=== PATIENT | female | born 1990 | race Caucasian/White ===

== ENCOUNTER → 2019-02-16 09:08 | Outpatient (BNVA) | payer BC, SELFPAY | PROVIDERS: Family Provider Family Medicine; PCP Family Medicine; Referring Provider Obstetrics & Gynecology; Visit Provider Obstetrics & Gynecology | DX: Z32.01 Encounter for pregnancy test, result positive (principal) | CPT/HCPCS: 81025 ==

== ENCOUNTER 2019-02-20 17:44 | Emergency (ER) | payer BC, SELFPAY ==
[2019-02-20 18:23] VITALS: BP 115/72; PULSE 98; RESP 20; TEMP 37.6; O2SAT 98; BMI 37.2
--- NOTE | 2019-02-20 18:59 | ED_ITS ---
HPI - Dental/Oral General: Chief complaint: Dental/Oral Stated complaint: dental pain/facial swelling Time Seen by Provider: 02/20/19 18:38 History of Present Illness: HPI Narrative: Patient is a 28-year-old female that is 6 weeks comes into the ED with facial swelling. This started yesterday and patient went to see urgent care and they put her on a prescription for Augmentin. Patient says that she's had this kind of swelling in her lower left jaw in the past because of wisdom teeth causing gum flap where food gets caught up underneath. She has taken 2 doses of antibiotic and it has not gotten any better so she came into the ED for evaluation.She says the swelling has increased. Patient denies any airway obstruction or shortness of breath, chest pain, abdominal pain, nausea, vomiting, upper respiratory symptoms, diarrhea, constipation, blood in the stool, dysuria, hematuria, vision changes. Review of Systems General: Reports: 10 or more systems reviewed and unremarkable except in HPI and below PFSH ED PFSH: Statuses (acute, chronic, etc) shown below reflect problem list status as previously entered and may not be historically accurate Social History Smoking and tobacco status: never smoked Alcohol intake: never Physical Exam Const: COMMON NORMALS: oriented x3 HENMT: COMMON NORMALS: normocephalic and external ears normal HEAD & SCALP: normocephalic FACE & SINUS: facial tenderness (mandible) on the left and other (Facial swelling on left mandible region) EXTERNAL EAR: Yes external ears normal MOUTH: oral and palatal mucosa normal TEETH & GINGIVA: Yes gingiva abnormal (Back ) edematous and tender THROAT: posterior oropharynx normal and uvula midline Neck/C-Spine: COMMON NORMALS: supple GENERAL: Yes normal visual inspection Resp: COMMON NORMALS: normal respiratory effort, no retractions, no use of accessory muscles and clear to auscultation bilaterally AUSCULTATION: clear to auscultation bilaterally Cardio: COMMON NORMALS: regular rate, regular rhythm, S1 normal heart sound, S2 normal heart sound, no gallops, no clicks, no murmurs and peripheral pulses 2+ throughout RATE: regular rate RHYTHM: regular rhythm HEART SOUNDS: S1 normal and S2 normal PERIPHERAL PULSES: pulses 2+ throughout GI: COMMON NORMALS: normal to inspection, nondistended, normoactive bowel sounds, soft to palpation, non-tender and no masses PALPATION: Yes soft : COMMON NORMALS: Yes no CVA tenderness BLADDER/KIDNEY EXAM: Yes no CVA tenderness Back/Pelvis: COMMON NORMALS: no CVA tenderness Extremity: COMMON NORMALS: normal to inspection Neuro: COMMON NORMALS: oriented x3 Skin: COMMON NORMALS: no rashes or lesions noted GENERAL SKIN EXAM: no rashes or lesions noted Course ED course: Patient is [address] of the face is contraindicated due to possible injury to the fetus. I explained to the patient and she decided not to do a CT scan. Vital Signs: Vital signs: Vital Signs Temperature 98.7 F 02/20/19 20:07 Pulse Rate 72 02/20/19 20:07 Respiratory Rate 16 02/20/19 20:07 Blood Pressure 131/62 02/20/19 20:07 Pulse Oximetry 98 02/20/19 20:07 MDM - Dental/Oral Lab Data: Attestation: I reviewed the patient's lab results. Labs: Lab Results 02/20/19 02/20/19 02/20/19 Range/Units 19:00 19:18 19:18 WBC 11.7 H (4.0-10.0) 10^3/ uL RBC 4.47 (4.1-5.3) 10^6/u L Hgb 12.5 (11.5-15.3) g/dL Hct 40.5 (37.0-47.0) % MCV 90.6 (81-99) fL MCH 28.0 (28.0-34.0) pg MCHC 30.9 (30.0-36.0) g/dL RDW 13.0 (12.1-15.1) % Plt Count 205 (130-400) 10^3/c mm MPV 11.3 H (7.4-10.4) fL Neut % (Auto) 60.9 % Lymph % (Auto) 28.0 % Morehouse % (Auto) 7.2 % Eos % (Auto) 3.4 % Baso % (Auto) 0.2 % Neut # (Auto) 7.2 (1.8-7.7) 10^3/u L Lymph # (Auto) 3.3 (0.8-4.8) 10^3/u L Morehouse # (Auto) 0.8 (0.2-0.9) 10^3/u L Eos # (Auto) 0.4 (0.0-0.8) 10^3/u L Baso # (Auto) 0.0 (0.0-0.1) 10^3/u L Nucleated RBC % (a uto) 0 % Nucleated RBCs # 0.0 /100WBC Sodium 137 (136-145) mmol/L Potassium 3.8 (3.5-5.1) mmol/L Chloride 101 (98-107) mmol/L Carbon Dioxide 23 (22-29) mmol/L Anion Gap 16.8 (5-19) BUN 8 (6-20) mg/dL Creatinine 0.5 (0.5-0.9) mg/dL GFR Calculation 144.9 H (90-130) mL/min Glucose 90 (74-109) mg/dL Calcium 10.3 H (8.6-10.0) mg/Dl Total Bilirubin 0.3 (0.15-1.2) mg/dL AST 15 (0-32) U/L ALT 15 (0-33) U/L Alkaline Phosphata se 62 (35-105) IU/L Total Protein 8.0 (6.6-8.7) g/dL Albumin 4.3 (3.5-5.2) g/dL Globulin 3.7 (1.3-4.6) g/dL Urine Color Straw (Yellow) Urine Appearance Hazy A (CLEAR) Urine pH 7 (5-7) Ur Specific Gravit y 1.015 (1.005-1.030) Urine Protein Neg (Negative) Urine Glucose (UA) Norm (Normal) Urine Ketones Negative (Negative) Urine Occult Blood 3+ H (Negative) Urine Nitrate Negative (Negative) Urine Bilirubin 1+ H (NEGATIVE) Urine Urobilinogen 4 H (Negative) mg/dL Ur Leukocyte Sakshi ase Negative (Negative) Urine RBC 0-4 H (0-2) /hpf Urine WBC Rare (0-5) /hpf Ur Squamous Epith Cells 0-4 H (0-5) Urine Bacteria 2+ H (NONE) Urine Mucus 2+ Discharge Plan Discharge Patient Disposition: Home, Self-Care Clinical Impression: Dental abscess Condition: Stable Prescriptions: No Action prenat.vits,polly,[id number] Tablet 1 tab PO ONCE RF: 0 amoxicillin-pot clavulanate [Augmentin] 875-125 mg tablet 1 tab PO BID 10 Days Qty: 20 RF: 0 Discharge Orders: Discharge Order (Routine); Ordered 02/20/19 Ordered By: Hasmukh Whyte Referrals: Gin Jones MD [Primary Care Provider] - Discharge Diet: Regular Discharge Activity: Resume usual activity Activity Restrictions/Additional Instructions: Continue taking previously prescribed Augmentin for dental abscess. Monitor facial swelling and if it continues to get worse by Friday return to the ED. Also if swelling starts affecting the throat or breathing return to the ED immediately. Use warm moist compresses on facial swelling area to help reduce swelling. Follow-up with primary care doctor in 5-7 days for reevaluation. Also contact dentist to try to set up an appointment for evaluation of dental abscess. Take Tylenol for pain and fever control. Drink plenty of fluids. Discharge Date/Time: 02/20/19 20:00 Coding Level of Care Code ED [employer] for [employer]
[2019-02-20] MEDS: iohexol 300 mg/mL 100 mL Btl IV (19:02)
[2019-02-20 19:24] LABS: Glucose Urine UA Norm (Normal); Ketones Urine Negative (Negative); Protein Urine Neg (Negative); Specific Gravity, Urine 1.015 (1.005-1.030); Urine Appearance Hazy (CLEAR); Urine Color Straw (Yellow); pH Urine 7 (5-7)
[2019-02-20 19:24] LABS: Basophils % 0.2 %; Eosinophils # 0.4 10^3/uL (0.0-0.8); Eosinophils % 3.4 %; Hematocrit 40.5 % (37.0-47.0); Hemoglobin 12.5 g/dL (11.5-15.3); Lymphocytes # 3.3 10^3/uL (0.8-4.8); Mean Corpuscular HGB Conc 30.9 g/dL (30.0-36.0); Mean Corpuscular Volume 90.6 fL (81-99); Mean Platelet Volume 11.3 fL (7.4-10.4); Monocytes # 0.8 10^3/uL (0.2-0.9); Monocytes % 7.2 %; Neutrophils # 7.2 10^3/uL (1.8-7.7); Neutrophils % 60.9 %; Nucleated Red Blood Cells % 0 %; Platelet Count 205 10^3/cmm (130-400); Red Blood Count 4.47 10^6/uL (4.1-5.3); White Blood Count 11.7 10^3/uL (4.0-10.0)
[2019-02-20 19:25] LABS: Add Urine Microscopic? YES; Bilirubin Urine 1+ (NEGATIVE); Blood Urine 3+ (Negative); Leukocyte Esterase Urine Negative (Negative); Nitrate Urine Negative (Negative); Urobilinogen Urine 4 mg/dL (Negative)
--- NOTE | 2019-02-20 19:29 | PC.NURSE ---
Jaw pain and swelling on left side of face extending to left neck. Worsening over last 2 days, started antibiotics yesterday
[2019-02-20 19:32] LABS: Add Urine Culture? Yes; Bacteria Urine 2+; Mucus Urine 2+; RBC Urine 0-4 /hpf (0-2); Squamous Epithelial Cell Urine 0-4 (0-5); WBC Urine RARE /hpf (0-5)
[2019-02-20 19:41] LABS: Alanine Aminotransferase 15 U/L (0-33); Albumin Level 4.3 g/dL (3.5-5.2); Alkaline Phosphatase 62 IU/L (35-105); Anion Gap 16.8 (5-19); Aspartate Amino Transferase 15 U/L (0-32); Blood Urea Nitrogen 8 mg/dL (6-20); Calcium 10.3 mg/Dl (8.6-10.0); Carbon Dioxide 23 mmol/L (22-29); Chloride 101 mmol/L (98-107); Globulin 3.7 g/dL (1.3-4.6); Glomerular Filtration Rate 144.9 mL/min (90-130); Glucose 90 mg/dL (74-109); Potassium 3.8 mmol/L (3.5-5.1); Sodium 137 mmol/L (136-145); Total Bilirubin 0.3 mg/dL (0.15-1.2)
[2019-02-20 20:07] VITALS: BP 131/62; PULSE 72; RESP 16; TEMP 37.1; O2SAT 98
== END 2019-02-20 20:00 | disposition home or self-care (01) ==
PROVIDERS: Emergency Provider Physician Assistant; Family Provider Family Medicine; PCP Family Medicine
DX: K04.7 Periapical abscess without sinus (principal)
CPT/HCPCS: 80053; 81003; 85025; 87086; 99282; Q9967

== ENCOUNTER → 2019-03-05 14:15 | Outpatient (BNVA) | payer BC, SELFPAY | PROVIDERS: Family Provider Family Medicine; PCP Family Medicine; Visit Provider Nurse Practitioner Women's Health | DX: Z01.89 Encounter for other specified special examinations (principal) | CPT/HCPCS: 84315 ==

== ENCOUNTER → 2019-03-11 08:10 | Outpatient (BNVA) | payer BC, SELFPAY | PROVIDERS: Family Provider Family Medicine; PCP Family Medicine; Visit Provider Obstetrics & Gynecology | DX: O09.891 Supervision of other high risk pregnancies, first trimester (principal); Z3A.08 8 weeks gestation of pregnancy | CPT/HCPCS: 76817 ==

== ENCOUNTER → 2019-03-26 10:52 | Outpatient (BNVA) | payer BC, SELFPAY | PROVIDERS: Family Provider Family Medicine; PCP Family Medicine; Visit Provider Obstetrics & Gynecology Female Pelvic Medicine and Reconstructive Surgery | DX: O09.891 Supervision of other high risk pregnancies, first trimester (principal); O20.9 Hemorrhage in early pregnancy, unspecified; O99.210 Obesity complicating pregnancy, unspecified trimester; O21.9 Vomiting of pregnancy, unspecified; O34.219 Maternal care for unspecified type scar from previous cesarean delivery; Z3A.11 11 weeks gestation of pregnancy | CPT/HCPCS: 80307; 82950; 84315; 85027; 86592; 86762; 86803; 86850; 86900; 87086; 87340; 87491; 87591; 87806 ==

== ENCOUNTER 2019-04-07 19:17 | Emergency (ER) | payer BC, SELFPAY ==
[2019-04-07 19:26] VITALS: BP 142/101; PULSE 120; RESP 20; TEMP 36.8; O2SAT 96; BMI 37.8
== END 2019-04-07 23:48 | disposition left against medical advice (07) ==
LOC: ER 20:56
PROVIDERS: Family Provider Family Medicine; PCP Family Medicine
DX: O99.89 Other specified diseases and conditions complicating pregnancy, childbirth and the puerperium (principal); R10.10 Upper abdominal pain, unspecified; R10.30 Lower abdominal pain, unspecified; R11.2 Nausea with vomiting, unspecified; Z3A.13 13 weeks gestation of pregnancy; Z53.21 Procedure and treatment not carried out due to patient leaving prior to being seen by health care provider
CPT/HCPCS: 99281

== ENCOUNTER 2019-04-08 15:22 | Outpatient (CLI) | payer BC, SELFPAY ==
--- NOTE | 2019-04-08 | US_ITS ---
WS: [id number] RIGHT UPPER QUADRANT ULTRASOUND HISTORY: RUQ PAIN COMPARISON: 11/10/2017 Liver: 14.4 cm in length. Normal size and echogenicity with no intrahepatic dilatation. No mass. Gallbladder: Normally distended gallbladder with no stones or wall thickening. CBD: 4.8 cm Pancreas: Pancreas is slightly prominent but similar to the prior examination. No peripancreatic flui d. The size of the pancreas is probably related to the young age of the patient. Right kidney: 12.3 cm in length. Normal echogenicity with no mass or hydronephrosis. Aorta and IVC: Unremarkable. No ascites. US/US gall bladder [id number] IMPRESSION: Normal RIGHT upper quadrant ultrasound.
[2019-04-08 16:10] LABS: Basophils % 0.2 %; Eosinophils # 0.3 10^3/uL (0.0-0.8); Eosinophils % 3.3 %; Hematocrit 38.7 % (37.0-47.0); Hemoglobin 12.1 g/dL (11.5-15.3); Lymphocytes # 2.3 10^3/uL (0.8-4.8); Lymphocytes % 22.5 %; Mean Corpuscular HGB Conc 31.3 g/dL (30.0-36.0); Mean Corpuscular Hemoglobin 28.6 pg (28.0-34.0); Mean Corpuscular Volume 91.5 fL (81-99); Mean Platelet Volume 11.6 fL (7.4-10.4); Monocytes # 0.6 10^3/uL (0.2-0.9); Monocytes % 6.4 %; Neutrophils # 6.8 10^3/uL (1.8-7.7); Neutrophils % 67.4 %; Nucleated Red Blood Cells % 0 %; Platelet Count 141 10^3/cmm (130-400); Red Blood Count 4.23 10^6/uL (4.1-5.3); Red Cell Distribution Width 13.5 % (12.1-15.1)
[2019-04-08 16:28] LABS: Alanine Aminotransferase 8 U/L (0-33); Albumin Level 4.1 g/dL (3.5-5.2); Alkaline Phosphatase 50 IU/L (35-105); Anion Gap 17.2 (5-19); Aspartate Amino Transferase 13 U/L (0-32); Blood Urea Nitrogen 7 mg/dL (6-20); Calcium 9.8 mg/dL (8.5-10.5); Carbon Dioxide 23 mmol/L (22-29); Chloride 98 mmol/L (98-107); Globulin 3.3 g/dL (1.3-4.6); Glomerular Filtration Rate 144.9 mL/min (90-130); Glucose 87 mg/dL (65-115); Potassium 4.2 mmol/L (3.5-5.1); Sodium 134 mmol/L (136-145); Total Bilirubin 0.4 mg/dL (0.15-1.2); Total Protein 7.4 g/dL (6.6-8.7)
== END 2019-04-08 15:23 | disposition home or self-care (01) ==
LOC: RAD 15:25
PROVIDERS: Family Provider Family Medicine; PCP Family Medicine; Visit Provider Family Medicine
DX: R10.11 Right upper quadrant pain (principal)
CPT/HCPCS: 36415; 76705; 80053; 85025

== ENCOUNTER → 2019-04-20 08:22 | Outpatient (BNVA) | payer BC, SELFPAY | PROVIDERS: Family Provider Family Medicine; PCP Family Medicine; Visit Provider Obstetrics & Gynecology | DX: Z01.89 Encounter for other specified special examinations (principal) | CPT/HCPCS: 84315 ==

== ENCOUNTER → 2019-05-04 13:00 | Outpatient (BNVA) | payer BC, SELFPAY | PROVIDERS: Family Provider Family Medicine; PCP Family Medicine; Referring Provider Obstetrics & Gynecology; Visit Provider Nurse Practitioner Women's Health | DX: Z01.89 Encounter for other specified special examinations (principal) | CPT/HCPCS: 84315 ==

== ENCOUNTER → 2019-05-31 08:12 | Outpatient (BNVA) | payer BC, SELFPAY | PROVIDERS: Family Provider Family Medicine; PCP Family Medicine; Referring Provider Obstetrics & Gynecology; Visit Provider Obstetrics & Gynecology | DX: Z34.92 Encounter for supervision of normal pregnancy, unspecified, second trimester (principal); Z3A.20 20 weeks gestation of pregnancy | CPT/HCPCS: 76805 ==

== ENCOUNTER → 2019-06-02 08:31 | Outpatient (BNVA) | payer BC, SELFPAY | PROVIDERS: Family Provider Family Medicine; PCP Family Medicine; Visit Provider Obstetrics & Gynecology | DX: Z34.90 Encounter for supervision of normal pregnancy, unspecified, unspecified trimester (principal); O09.299 Supervision of pregnancy with other poor reproductive or obstetric history, unspecified trimester; O09.892 Supervision of other high risk pregnancies, second trimester; Z04.89 Encounter for examination and observation for other specified reasons; O43.212 Placenta accreta, second trimester; O34.219 Maternal care for unspecified type scar from previous cesarean delivery; O99.211 Obesity complicating pregnancy, first trimester; O21.9 Vomiting of pregnancy, unspecified | CPT/HCPCS: 84315; 85049 ==

== ENCOUNTER → 2019-07-27 10:02 | Outpatient (BNVA) | payer BC, SELFPAY | PROVIDERS: Family Provider Family Medicine; PCP Family Medicine; Visit Provider Nurse Practitioner Women's Health | DX: O09.892 Supervision of other high risk pregnancies, second trimester (principal) | CPT/HCPCS: 82950; 84315; 85027 ==

== ENCOUNTER → 2019-08-09 14:22 | Outpatient (BNVA) | payer BC, SELFPAY | PROVIDERS: Family Provider Family Medicine; PCP Family Medicine; Visit Provider Obstetrics & Gynecology | DX: O09.892 Supervision of other high risk pregnancies, second trimester (principal) | CPT/HCPCS: 80053; 84315 ==

== ENCOUNTER 2019-09-03 11:06 | Outpatient (CLI) | payer BC, SELFPAY ==
[2019-09-03 11:25] VITALS: BMI 44.3
[2019-09-03 11:49] VITALS: BP 116/65; PULSE 104; RESP 16
[2019-09-03 11:55] LABS: Nitrazine Paper, PH Negative
[2019-09-03 12:11] VITALS: BP 123/64; PULSE 102; RESP 16
[2019-09-03] MEDS: fluconazole 100 mg Tablet 150 MG PO (12:11)
[2019-09-03 12:24] VITALS: BP 123/64; PULSE 102; RESP 16; TEMP 36.5; O2SAT 99
== END 2019-09-03 12:19 | disposition home or self-care (01) ==
LOC: OPOB 11:06 → OBGYN 11:07
PROVIDERS: Family Provider Family Medicine; PCP Family Medicine; Visit Provider Obstetrics & Gynecology
DX: O26.899 Other specified pregnancy related conditions, unspecified trimester (principal); Z3A.00 Weeks of gestation of pregnancy not specified; N89.8 Other specified noninflammatory disorders of vagina
CPT/HCPCS: 59025; 83986; 99211

== ENCOUNTER 2019-09-16 08:03 | Outpatient (CLI) | payer BC, SELFPAY ==
[2019-09-16 08:32] VITALS: BMI 44.7
[2019-09-16] MEDS: betamethasone susp 6 mg/mL 5 mL 12 MG IM (08:34)
[2019-09-16 08:48] VITALS: BP 118/67; PULSE 110; RESP 17; TEMP 36.7
[2019-09-18 16:40] LABS: Quest SARS-CoV-2 RNA NOT DETECTED (NOT DETECTED)
== END 2019-09-16 08:40 | disposition home or self-care (01) ==
LOC: OPOB 08:17 → OBGYN 09-17 08:29
PROVIDERS: PCP Family Medicine; Visit Provider Obstetrics & Gynecology
DX: O26.899 Other specified pregnancy related conditions, unspecified trimester (principal); Z3A.00 Weeks of gestation of pregnancy not specified
CPT/HCPCS: 87635; 96372; J0702

== ENCOUNTER 2019-09-17 08:34 | Outpatient (CLI) | payer BC, SELFPAY ==
[2019-09-17 08:41] VITALS: BP 132/61; PULSE 120; RESP 18; TEMP 36.3
[2019-09-17] MEDS: betamethasone susp 6 mg/mL 5 mL 12 MG IM (08:53)
[2019-09-17 08:59] VITALS: BMI 44.7
== END 2019-09-17 09:00 | disposition home or self-care (01) ==
LOC: OPOB 08:39 → OBGYN 08:40
PROVIDERS: PCP Family Medicine; Visit Provider Obstetrics & Gynecology
DX: O26.899 Other specified pregnancy related conditions, unspecified trimester (principal); Z3A.00 Weeks of gestation of pregnancy not specified
CPT/HCPCS: 96372; 99211; J0702

== ENCOUNTER → 2019-10-30 15:17 | Outpatient (BNVA) | payer BC, SELFPAY | PROVIDERS: PCP Family Medicine | DX: Z20.828 Contact with and (suspected) exposure to other viral communicable diseases (principal) | CPT/HCPCS: 87635 ==

== ENCOUNTER → 2019-11-01 10:37 | Outpatient (BNVA) | payer BC, SELFPAY | PROVIDERS: PCP Family Medicine; Visit Provider Obstetrics & Gynecology | DX: D69.6 Thrombocytopenia, unspecified (principal) | CPT/HCPCS: 85025 ==

== ENCOUNTER → 2024-06-03 08:39 | Outpatient (BNVA) | payer OTHER, SELFPAY | PROVIDERS: PCP Family Medicine; Visit Provider Family Medicine | DX: Z51.81 Encounter for therapeutic drug level monitoring (principal); Z00.00 Encounter for general adult medical examination without abnormal findings; Z13.1 Encounter for screening for diabetes mellitus; E66.811 Obesity, class 1; Z13.6 Encounter for screening for cardiovascular disorders | CPT/HCPCS: 80053; 80061; 83036; 85025 ==